=== PATIENT | male | born 1980 | race Caucasian/White ===

== ENCOUNTER 2020-09-05 06:39 | Outpatient (NON) | payer OTHER, SELFPAY ==
[2020-09-06 14:57] LABS: SARS-CoV-2 RNA PCR Negative
== END 2020-09-05 06:40 ==
LOC: ANHCOVIDDT 07:06
PROVIDERS: Visit Provider Nurse Practitioner Family
DX: R05 Cough (principal); Z20.828 Contact with and (suspected) exposure to other viral communicable diseases
CPT/HCPCS: 87635; C9803; U0003

== ENCOUNTER 2025-04-07 06:43 | Emergency (ER) | payer OTHER, SELFPAY ==
--- NOTE | ~2025-04-07 | CT_ITS ---
Non-contrast CT scan of the Abdomen and Pelvis Clinical indication: Right flank pain Technique: 2.5 mm axial scans were obtained through the abdomen and pelvis without intravenous or or al contrast. Dose reduction technique was used on this scan by utilizing automated exposure control a nd iterative reconstruction technique. The dose-length product (DLP) was 573.25 mGy-cm. Findings: Images through the lung bases reveal no abnormalities. 2 mm right UVJ stone present, with mild right hydroureteronephrosis. No left renal or left ureteral s tone. No left hydronephrosis. The liver, spleen, pancreas, gallbladder, and adrenals appear normal. There is no aortic aneurysm. There is no evidence of bowel obstruction. Images through the pelvis were performed. There is no evidence of ascites or lymphadenopathy. Urinary bladder unremarkable. No pelvic mass seen. Impression: 2 mm right UVJ stone with mild right hydroureteronephrosis. Reviewed, dictated and finalized at [facility]. Impression: 2 mm right UVJ stone with mild right hydroureteronephrosis.
[2025-04-07 06:48] VITALS: BP 149/90; PULSE 71; RESP 16; O2SAT 98
[2025-04-07] MEDS: ONDANSETRON INJ 4 MG/2 ML VIAL IV PUSH (07:03)
[2025-04-07 07:11] LABS: Basophils Absolute Auto 0.1 K/mm3 (0.0-0.1); Basophils Percent Auto 0.7 % (0.2-1.2); Eosinophils Absolute Auto 0.8 K/mm3 (0-0.3); Hematocrit 45.2 % (42.0-52.0); Hemoglobin 15.7 g/dL (14.0-18.0); Immature Granulocyte Absolute 0.05 K/mm3 (0.00-0.031); Immature Granulocyte Percent A 0.5 % (0-0.5); Lymphocytes Absolute Auto 5.04 K/mm3 (0.9-3.2); Lymphocytes Percent Auto 45.7 % (18.3-44.2); Mean Corpuscular HGB Conc 34.7 g/dl (32-36); Mean Corpuscular Hemoglobin 30.1 pg (26-34); Mean Corpuscular Volume 86.6 fl (80-100); Mean Platelet Volume 10.5 fl (7.4-10.4); Monocytes Absolute Auto 1.1 K/mm3 (0.1-0.6); Monocytes Percent Auto 9.9 % (2.6-8.5); Neutrophils Percent Auto 36.2 % (45.5-73.1); Platelet Count Result 268 k/mm3 (150-375); Red Blood Count 5.22 M/mm3 (4.6-6.20); Red Cell Distribution Width 14.2 % (11.5-14.5)
[2025-04-07] MEDS: HYDROmorphone HCL INJ (*CRX) 2 MG/ML VIAL 1 MG IV PUSH (07:14)
[2025-04-07 07:22] LABS: Alanine Aminotransferase 62 U/L (6-50); Albumin Level 4.8 g/dL (3.5-5.1); Alkaline Phosphatase 50 U/L (38-126); Anion Gap 13 mmol/L (4-12); Aspartate Amino Transferase 50 U/L (17-59); Bilirubin,Total 0.7 mg/dL (0.2-1.3); Blood Urea Nitrogen 17 mg/dL (9-20); Calcium 10.1 mg/dL (8.4-10.2); Carbon Dioxide 21 mmol/L (22-30); Chloride 106 mmol/L (98-107); Estimated CRCL calculation 105 ml/min; Estimated Glomerular Filt Rate > 60; Glucose 137 mg/dL (65-110); Lipase 111 U/L (23-300); Potassium 3.8 mmol/L (3.4-5.0); Sodium 140 mmol/L (137-145); Total Protein 8.2 g/dL (6.3-8.2)
[2025-04-07 07:24] LABS: Add Urine Microscopic? YES
[2025-04-07 07:25] LABS: Appearance Urine Clear (Clear); Color Urine Amber (Yellow); Glucose Urine UA Negative (Negative); Ketones Urine Negative (Negative); Nitrate Urine Negative (Negative); Protein Urine 2+ mg/dL (Negative); Specific Grav Ur >= 1.030 (1.001-1.035); pH Urine 5.5 (5.0-9.0)
[2025-04-07 07:26] LABS: Bilirubin Urine 1+ (Negative); Blood Urine 3+ (Negative); Leukocyte Esterase Ur Negative LEU/UL (Negative); Urobilinogen Urine 0.2 mg/dL (<2.0)
[2025-04-07 07:27] LABS: Bacteria Urine None Seen /hpf; Need Manual Microscopic Reviewed; Non Pathogenic Casts 0-2; RBC Urine >100 /hpf (0-2); Squamous Epithelial Cell Urine None Seen /hpf (Few); WBC Urine 0-5 /hpf (0-3)
--- NOTE | 2025-04-07 07:33 | ED_ITS ---
HPI - General Adult General Chief complaint: Abdominal Pain Stated complaint: kidney stone Time Seen by Provider: 04/07/25 06:55 History of Present Illness HPI narrative: 44-year-old male presents to the emergency department for evaluation for acute onset right flank pain with associated nausea and vomiting. Patient states he felt fine going to bed last night but during urination this morning he had onset right flank and right lower quadrant pain. Patient does have associated nausea and vomiting. Patient denies any central abdominal pain denies any associated chest pain or shortness of breath. Patient denies any prior cardiac history. Patient states he does have history of high blood pressure but this is typically controlled medications. Upon arrival to the emergency department patient is diaphoretic appearing but only complains of right flank pain. Related Data Allergies Allergy/AdvReac Type Severity Reaction Status Date / Time bee venom protein (honey bee) Allergy Mild Unknown Verified 02/13/25 07:48 Review of Systems 2 Review of Systems: All systems reviewed & are unremarkable except as noted in HPI and below PMFSH Family History Family History Father Acute myocardial infarction Tobacco abuse Mother No problems noted. Sibling No problems noted. Other Family history of coronary artery disease Family history of elevated blood lipids Family history of seizure disorder Hypertension Social History Social History Smoking status: Never smoker Second hand tobacco smoke exposure: Yes Alcohol intake: current Substance use: current Substance use type: marijuana Do You Feel Safe in your Home?: Yes Lack of Transportation: No Lack of Food: Never True Current Housing: I Have Housing Concerned About Future Housing: No Difficulty Paying Gas/Electric Bills: No Difficulty Paying for Meds: No Currently Unemployed: No Education: High School Diploma/GED Difficulty w/ Childcare or Family Care: No Living arrangements: with family Occupation/Education: occupation Additional occupation/education comments: [employer] Gender identity (if verbalized by the patient): Male Exam 2 Narrative: APPEARANCE: Uncomfortable appearing HEAD: normocephalic, atraumatic. EYES: PERRLA/EOMI, conjunctivae clear. NOSE: Normal no drainage EARS:TMS clear with good light reflex. THROAT: Pharynx clear, no exudate. NECK: Supple. No adenopathy, no masses. RESPIRATORY: Airway patent, respirations nonlabored. Clear to auscultation bilaterally, no rales, rhonchi, wheezing. CARDIOVASCULAR: Regular rate and rhythm without murmurs rubs or gallops. ABDOMINAL: No right lower quadrant tenderness but does have some right CVA tenderness to palpation MUSCULOSKELETAL: Right lower quadrant tenderness to palpation NEURO: Alert. Cranial nerves II through XII intact. SKIN: Warm, dry. Normal Color Course Vital Signs Vital signs: Vital Signs Pulse Rate 71 04/07/25 06:48 Respiratory Rate 16 04/07/25 06:48 Blood Pressure 149/90 H 04/07/25 06:48 Pulse Oximetry 98 04/07/25 06:48 Oxygen Delivery Room Air 04/07/25 06:48 Temperature 97.8 F 04/07/25 10:04 Pulse Rate 80 04/07/25 10:04 Respiratory Rate 16 04/07/25 10:04 Blood Pressure 138/74 04/07/25 10:04 Pulse Oximetry 100 04/07/25 10:04 Oxygen Delivery Room Air 04/07/25 06:48 Medical Decision Making MDM Narrative Medical decision making narrative: 42-year-old male present to the emergency department for evaluation for right flank pain right lower quadrant pain. Patient does have a prior history of kidney stones. Patient is currently afebrile but does have a leukocytosis of 11.0 hemoglobin 15.7. No acute abnormalities on his CMP with a creatinine of 1.03. UA was positive for blood but negative for evidence of infection. CT scan does show 2 mm right UVJ stone with mild right hydroureteronephrosis. Patient did feel improved with IV Dilaudid. Patient was treated additional IV Toradol and had resolution of his pain. Patient was also treated with p.o. [place] and p.o. Flomax. Patient will be discharged home with some medications. Patient was updated results of his workup patient was comfortable with plan for discharge and close follow-up. Differential Diagnosis Differential Diagnosis: Kidney stone, UTI, colitis, diverticulitis, appendicitis, ureteral calculi Vital Signs Vital Signs: Vital Signs Pulse Rate 71 04/07/25 06:48 Respiratory Rate 16 04/07/25 06:48 Blood Pressure 149/90 H 04/07/25 06:48 Pulse Oximetry 98 04/07/25 06:48 Oxygen Delivery Room Air 04/07/25 06:48 Temperature 97.8 F 04/07/25 10:04 Pulse Rate 80 04/07/25 10:04 Respiratory Rate 16 04/07/25 10:04 Blood Pressure 138/74 04/07/25 10:04 Pulse Oximetry 100 04/07/25 10:04 Oxygen Delivery Room Air 04/07/25 06:48 Lab Data Lab results reviewed: Yes I reviewed the patient's lab results. 04/07/25 06:59 04/07/25 06:59 Labs: Lab Results 04/07/25 Range/Units 06:59 WBC 11.0 H (4.5-10.0) K/mm3 RBC 5.22 (4.6-6.20) M/mm3 Hgb 15.7 (14.0-18.0) g/dL Hct 45.2 (42.0-52.0) % MCV 86.6 (80-100) fl MCH 30.1 (26-34) pg MCHC 34.7 (32-36) g/dl RDW 14.2 (11.5-14.5) % Plt Count 268 (150-375) k/mm3 MPV 10.5 H (7.4-10.4) fl Immature Gran % (Auto) 0.5 (0-0.5) % Neut % (Auto) 36.2 L (45.5-73.1) % Lymph % (Auto) 45.7 H (18.3-44.2) % Sanders % (Auto) 9.9 H (2.6-8.5) % Eos % (Auto) 7.0 H (0-4.4) % Baso % (Auto) 0.7 (0.2-1.2) % Lymph # (Auto) 5.04 H (0.9-3.2) K/mm3 Sanders # (Auto) 1.1 H (0.1-0.6) K/mm3 Eos # (Auto) 0.8 H (0-0.3) K/mm3 Baso # (Auto) 0.1 (0.0-0.1) K/mm3 Abs Immat Gran (auto) 0.05 H (0.00-0.031) K/mm3 Absolute Neuts (auto) 4.0 (1.3-6.7) K/mm3 Absolute Nucleated RBC 0.000 (0.0-0.012) K/mm3 Nucleated RBC % 0.0 (0.0-0.2) % Sodium 140 (137-145) mmol/L Potassium 3.8 (3.4-5.0) mmol/L Chloride 106 (98-107) mmol/L Carbon Dioxide 21 L (22-30) mmol/L Anion Gap 13 H (4-12) mmol/L BUN 17 (9-20) mg/dL Creatinine 1.03 (0.7-1.3) mg/dL Estim Creat Clear Calc 105 ml/min Estimated GFR > 60 (59 - ) Glucose 137 H (65-110) mg/dL Calcium 10.1 (8.4-10.2) mg/dL Total Bilirubin 0.7 (0.2-1.3) mg/dL AST 50 (17-59) U/L ALT 62 H (6-50) U/L Alkaline Phosphatase 50 (38-126) U/L Total Protein 8.2 (6.3-8.2) g/dL Albumin 4.8 (3.5-5.1) g/dL Lipase 111 (23-300) U/L Urine Color Iman (Yellow) Urine Appearance Clear (Clear) Urine pH 5.5 (5.0-9.0) Ur Specific Deaver >= 1.030 (1.001-1.035) Urine Protein 2+ H (Negative) mg/dL Urine Glucose (UA) Negative (Negative) mg/dL Urine Ketones Negative (Negative) mg/dL Ur Blood (Man) 3+ H (Negative) Urine Nitrate Negative (Negative) Urine Bilirubin 1+ H (Negative) Urine Urobilinogen 0.2 (<2.0) mg/dL Add Ur Microanalysis Reviewed Leukocyte Esterase Rfl Negative (Negative) ELSA/UL Urine RBC >100 H (0-2) /hpf Urine WBC 0-5 (0-3) /hpf Ur Squamous Epith Cells None seen (Few) /hpf Urine Bacteria None seen /hpf Urine Casts 0-2 Imaging Data Radiologist's impression: Impressions Abdomen/Pelvis CT 04/07/25 07:51 Impression: 2 mm right UVJ stone with mild right hydroureteronephrosis. Discharge Plan Discharge Clinical Impression: Calculi, ureter Patient Disposition: Home Condition: Stable Instructions: Antibiotic Form, Kidney Stones (ED), How to Strain Your Urine (ED) Additional Instructions: Zofran as needed for nausea control. Flomax as directed to help you pass the stone. Strain your urine as instructed. Ibuprofen for pain control [place] as needed for additional pain control. Have close follow-up with Urology. If you have any worsening symptoms then please call or return to the emergency department. Patient Language: Icelandic Prescriptions: New hydrocodone-acetaminophen 5-325 mg tablet 1 tablet PO Q12H PRN (Reason: pain) 7 Days Qty: 14 0RF tamsulosin [Flomax] 0.4 mg capsule 0.4 mg PO DAILY 14 Days Qty: 14 0RF ondansetron 4 mg tablet,disintegrating 4 mg PO Q8H PRN (Reason: nausea and vomiting) Qty: 14 0RF No Action atorvastatin 20 mg tablet See Rx Instructions .ROUTE .COMPLEX Qty: 90 2RF Dose Instruction: TAKE 1 TABLET BY MOUTH EVERY DAY Rx Instructions: TAKE 1 TABLET BY MOUTH EVERY DAY lisinopril-hydrochlorothiazide 20-12.5 mg tablet 1 tablet PO DAILY Qty: 90 2RF Follow-up/Referrals: Omar Galindo MD [Physician] - Abdiel Levy MD [Primary Care Provider] -
[2025-04-07] MEDS: TAMSULOSIN HCL 0.4 MG CAPSULE PO (08:17)
[2025-04-07] MEDS: KETOROLAC 15 MG/ML VIAL (*BKC) IV PUSH (08:17)
[2025-04-07] MEDS: METOCLOPRAMIDE HCL INJ 10 MG/2 ML VIAL IV PUSH (08:27)
[2025-04-07] MEDS: HYDROcodone/acetaminophen (*CRX) 5-325 MG TABLET 1 TAB PO (09:51)
[2025-04-07 10:04] VITALS: BP 138/74; PULSE 80; RESP 16; TEMP 36.6; O2SAT 100
== END 2025-04-07 10:10 | disposition home or self-care (01) ==
PROVIDERS: Emergency Provider Emergency Medicine; PCP Family Medicine
DX: N13.2 Hydronephrosis with renal and ureteral calculous obstruction (principal); Z77.22 Contact with and (suspected) exposure to environmental tobacco smoke (acute) (chronic)
CPT/HCPCS: 36415; 74176; 80053; 81001; 83690; 85025; 96374; 96375; 99284; A9270; J1171; J1885; J2405; J2765